=== PATIENT | male | born 1985 | race Two or more races ===

== ENCOUNTER 2021-02-25 01:28 | Emergency (ER) | payer SELFPAY ==
[~2021-02-25] VITALS: Ht 170.2 cm; Wt 90.9 kg
[2021-02-25 03:00] VITALS: BP 135/82
[2021-02-25] MEDS ORDERED: BACITRACIN 0.9 GM PACKET OINTMENT TP ONE (03:15)
== END 2021-02-25 04:32 | disposition home or self-care (01) ==
LOC: EMS 01:32
DX: S81.012A Laceration without foreign body, left knee, initial encounter (principal); S51.812A Laceration without foreign body of left forearm, initial encounter; S51.811A Laceration without foreign body of right forearm, initial encounter; Y04.2XXA Assault by strike against or bumped into by another person, initial encounter; Y93.89 Activity, other specified; Y92.89 Other specified places as the place of occurrence of the external cause; Y99.8 Other external cause status
CPT/HCPCS: 99283

== ENCOUNTER 2025-05-24 14:37 | Emergency (ER) | payer MEDICAID, OTHER ==
[~2025-05-24] VITALS: Ht 170.2 cm; Wt 110.0 kg
[2025-05-24 14:40] VITALS: BP 137/96; PULSE 77; RESP 18; TEMP 97.2; O2SAT 97
[2025-05-24] MEDS: PROPARACAINE HCL 0.5% 15 ML OPHTHALMIC SOLUTION OD ONE (15:08)
[2025-05-24] MEDS: FLUORESCEIN SODIUM 1 MG STRIP OD ONE (15:08)
[2025-05-24] MEDS: TOBRAMYCIN/DEXAMETHASONE 5 ML OPHTHALMIC SUSPENSION OS ONE (15:46)
== END 2025-05-24 15:51 | disposition home or self-care (01) ==
LOC: EMS 14:38
DX: S05.02XA Injury of conjunctiva and corneal abrasion without foreign body, left eye, initial encounter (principal); W44.9XXA Unspecified foreign body entering into or through a natural orifice, initial encounter; Y93.89 Activity, other specified; Y92.89 Other specified places as the place of occurrence of the external cause; Y99.8 Other external cause status
CPT/HCPCS: 99283